=== PATIENT | female | born 1965 | race Caucasian/White ===

== ENCOUNTER 2017-03-14 22:38 | Inpatient (IN) | payer OTHER, MEDICARE, MEDICAID ==
[2017-03-14] MEDS ORDERED: MORPHINE SULFATE 8 MG/ML INJ ONE (22:43)
[2017-03-14] MEDS ORDERED: LORazepam 2 MG/ML VIAL ONE (22:49)
[2017-03-14 23:05] LABS: I-STAT POTASSIUM 4.2 MMOL/L (3.5-4.9); I-STAT SODIUM 138 MMOL/L (138-146)
[2017-03-14] MEDS ORDERED: IOHEXOL 350 MG/ML 10 ML VIAL (for RAD DIAG) IVCONTRAST ONE (23:06)
[2017-03-14 23:07] LABS: AUTOMATED NEUTROPHIL # 6.8 TH/MM3 (1.8-7.7); BASOPHIL % 0.3 % (0.0-2.0); EOSINOPHIL # 0.3 TH/MM3 (0-0.4); EOSINOPHIL % 1.8 % (0.0-4.0); HEMATOCRIT 37.9 % (35.0-46.0); LYMPH % 43.4 % (9.0-44.0); MEAN CORPUSCULAR HEMOGLOBIN 30.2 PG (27.0-34.0); MEAN CORPUSCULAR HGB CONC 34.7 % (32.0-36.0); MONO % 5.2 % (0.0-8.0); NEUT % 49.3 % (16.0-70.0); PLATELET COUNT 405 TH/MM3 (150-450); RED BLOOD COUNT 4.36 MIL/MM3 (4.00-5.30); RED CELL DISTRIBUTION WIDTH 14.3 % (11.6-17.2); WHITE BLOOD COUNT 13.7 TH/MM3 (4.0-11.0)
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
[2017-03-14 23:10] LABS: HEMO FLAGS AUTO DIFF
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
[2017-03-14 23:18] LABS: APTT (PATIENT) 25.2 SEC (24.3-30.1); INTERNATIONAL NORMALIZED RATIO 0.9 RATIO; PROTHROMBIN TIME - PATIENT 10.4 SEC (9.8-11.6)
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
[2017-03-14 23:24] LABS: BETA HCG QUANT 5 MIU/ML (0-5)
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
[2017-03-14 23:28] LABS: ALCOHOL LESS THAN 3 MG/DL (0-5)
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
[2017-03-14] MEDS ORDERED: HYDROmorphone HCL PF 1 MG/ML VIAL IV PUSH PRN (23:45)
[2017-03-14] MEDS ORDERED: MAGNESIUM HYDROXIDE SUSP 30 ML CUP PO PRN (23:45)
[2017-03-14] MEDS ORDERED: ONDANSETRON HCL 4 MG/2 ML VIAL IV PUSH PRN (23:45)
[2017-03-14] MEDS ORDERED: MISCELLANEOUS NURSING INFORMATION XX SCH (23:45)
[2017-03-14] MEDS ORDERED: LACTULOSE SYRUP 20 GM/30 ML CUP PO PRN (23:45)
[2017-03-14] MEDS ORDERED: PILL SPLITTER OTHER PRN (23:45)
[2017-03-14] MEDS ORDERED: CHLORHEXIDINE GLUCONATE 2 % 1 PACK (2 CLOTHS) TOP PRN (23:45)
[2017-03-14] MEDS ORDERED: HYDROmorphone HCL PF 0.5 MG/0.5 ML SYRINGE IV PUSH PRN (23:45)
[2017-03-14] MEDS ORDERED: SENNOSIDES 8.6 MG TAB PO PRN (23:45)
[2017-03-14] MEDS ORDERED: BISACODYL 10 MG SUPP RECTAL PRN (23:45)
[2017-03-14] MEDS: CYCLOBENZAPRINE HCL 10 MG TAB PO SCH (23:45)
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
[2017-03-14 23:55] LABS: METAMYELOCYTES 1 % (0-1); MYELOCYTES 1 % (0-0); NEUTROPHIL # MANUAL DIFF 7.7 TH/MM3 (1.8-7.7); POLYS (SEG NEUTROPHILS) 54 % (16-70); WBC DIFF SAMPLE 100
[2017-03-14 23:56] LABS: PLATELET ESTIMATE SMEAR NORMAL (NORMAL); PLATELET MORPHOLOGY NORMAL (NORMAL); SCAN/DIFF FINAL DIFF MANUAL; TEARDROP RBCS 1+ (NORMAL)
[2017-03-15] VITALS (11 sets, daily range): BP systolic 105–113; BP diastolic 61–64; PULSE 72–90; RESP 16–24; TEMP 97.9–98.2; O2SAT 97–100
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
[2017-03-15] MEDS: SODIUM CHLOR 0.9% 1000 ML INJ 1,000 ML IV SCH ×2 (00:32→08:54)
--- NOTE | 2017-03-15 01:04 | PD.OP ---
Operative Report Right forehead open wound 8cm Nose open wound 3cm Postoperative Diagnosis: Right forehead open wound 8cm,Nose open wound 3cm Procedure: Simple closure Surgeon: Kerry Lopez Willower(s): none Operation and Findings: 52 y.o patient with above mentioned wounds-proceeded with closure. Patient's right forehead was sterilely prepped and draped .1% Lidocain was used as local anesthesia.5-0 vicryl was used to approximate the forehead wound.Both wounds were closed with 4-0 prolene and nylon. Kerry Lopez MD Mar 15, 2017 01:04
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
[2017-03-15] MEDS: CHLORHEXIDINE GLUCONATE 2 % 1 PACK (2 CLOTHS) TOP SCH (04:00)
[2017-03-15 05:22] LABS: AUTOMATED NEUTROPHIL # 11.4 TH/MM3 (1.8-7.7); BASOPHIL % 0.2 % (0.0-2.0); EOSINOPHIL % 0.3 % (0.0-4.0); HEMATOCRIT 35.4 % (35.0-46.0); HEMO FLAGS DIFF FINAL; LYMPH % 11.2 % (9.0-44.0); LYMPHOCYTE # 1.6 TH/MM3 (1.0-4.8); MEAN CELL VOLUME 87.2 FL (80.0-100.0); MEAN CORPUSCULAR HEMOGLOBIN 29.8 PG (27.0-34.0); MEAN CORPUSCULAR HGB CONC 34.1 % (32.0-36.0); MONO % 7.5 % (0.0-8.0); NEUT % 80.8 % (16.0-70.0); PLATELET COUNT 231 TH/MM3 (150-450); RED BLOOD COUNT 4.07 MIL/MM3 (4.00-5.30); RED CELL DISTRIBUTION WIDTH 14.5 % (11.6-17.2)
[2017-03-15 05:24] LABS: WHITE BLOOD COUNT 14.1 TH/MM3 (4.0-11.0)
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
[2017-03-15 05:37] LABS: BICARBONATE 21.1 MEQ/L (21.0-32.0); POTASSIUM 4.2 MEQ/L (3.5-5.1)
[2017-03-15] MEDS: CYCLOBENZAPRINE HCL 10 MG TAB PO SCH ×3 (06:00→21:13)
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
[2017-03-15] MEDS ORDERED: DOCUSATE SODIUM 50 MG/SENNA 8.6 MG TAB PO SCH (09:00)
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
[2017-03-15] MEDS: LIDOCAINE HCL 5% PATCH T-DERMAL SCH (09:24)
[2017-03-15] MEDS ORDERED: CYMB60CA PO (10:55)
[2017-03-15] MEDS ORDERED: CELE10TA PO (10:55)
[2017-03-15] MEDS ORDERED: GABA800T PO (10:55)
[2017-03-15] MEDS ORDERED: MORPHINE SULFATE 4 MG/ML INJ IV ONE (11:00)
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
[2017-03-15] MEDS ORDERED: PHENYLEPH/NS 1000 MCG/10 ML SYR IV ONE (12:00)
[2017-03-15] MEDS ORDERED: DEXAMETHASONE SOD PHOS 4 MG/ML VIAL IV ONE (12:00)
[2017-03-15] MEDS ORDERED: LIDOCAINE HCL 1% PF 5 ML AMPULE OTHER ONE (12:00)
[2017-03-15] MEDS ORDERED: PROPOFOL 200 MG/20 ML AMP IV ONE (12:00)
[2017-03-15] MEDS ORDERED: ONDANSETRON HCL 4 MG/2 ML VIAL IV PUSH ONE (12:00)
[2017-03-15] MEDS ORDERED: FAMOTIDINE 20 MG/2 ML VIAL ONE (12:04)
[2017-03-15] MEDS ORDERED: MIDAZOLAM HCL 2 MG/2 ML VIAL ONE (12:04)
[2017-03-15] MEDS ORDERED: FAMOTIDINE 20 MG/2 ML VIAL IV ONE (12:15)
[2017-03-15] MEDS ORDERED: MORPHINE SULFATE 2 MG/ML INJ IV PRN (12:15)
[2017-03-15] MEDS ORDERED: GENTAMICIN SULFATE 80 MG/2 ML VIAL ONE (13:01)
[2017-03-15] MEDS ORDERED: VANCOMYCIN HCL 1000 MG VIAL ONE (13:02)
[2017-03-15] MEDS ORDERED: ceFAZolin 2 GM PREMIX 50 ML ONE (13:02)
[2017-03-15] MEDS ORDERED: NALOXONE HCL 0.4 MG/ML AMP IV PUSH PRN ×2 (14:15→15:00)
[2017-03-15] MEDS ORDERED: DEXT 5%-NACL 0.45% 1000 ML INJ 1,000 ML IV SCH (14:56)
[2017-03-15] MEDS ORDERED: Post-op Orders (for Pharmacy) MISC XX ONE (15:00)
[2017-03-15] MEDS ORDERED: MISCELLANEOUS PHARMACY INFORMATION XX ONE (15:00)
[2017-03-15] MEDS ORDERED: ONDANSETRON HCL 4 MG/2 ML VIAL IVP PRN (15:00)
[2017-03-15] MEDS ORDERED: SODIUM CHLORIDE 0.9% FLUSH 5 ML FLUSH IVF PRN (15:00)
[2017-03-15] MEDS ORDERED: diphenhydrAMINE HCL 25 MG CAP PO PRN (15:00)
[2017-03-15] MEDS ORDERED: MORPHINE SULFATE 4 MG/ML INJ IV PUSH PRN (15:00)
[2017-03-15] MEDS ORDERED: MAGNESIUM HYDROXIDE SUSP 30 ML CUP PO PRN (15:00)
[2017-03-15] MEDS ORDERED: ACETAMINOPHEN/HYDROcodone 325 MG/5 MG TAB PO PRN ×2 (15:00)
[2017-03-15] MEDS ORDERED: MISCELLANEOUS NURSING INFORMATION XX PRN (15:00)
--- NOTE | 2017-03-15 15:03 | PD.OP ---
cc: Ki Lozano MD Operative Report Date of Surgery: Mar 15, 2017 Preoperative Diagnosis: Left tibia and fibula fracture. Postoperative Diagnosis: Same Procedure: Left tibia fracture treatment with intramedullary nail Anesthesia: Gen. Surgeon: Ki Lozano Kidney Puller(s): JOSE Blanton The surgical procedure was assisted by my Advanced Registered Nurse Practitioner. My LOAD PLANNER presence was necessary throughout this case for the manipulation and positioning of the surgical extremity. My LOAD PLANNER was assisting me throughout the duration of this procedure. The skill set of an Advance Registered Nurse Practitioner was medically necessary to complete this procedure. During the surgical case, the isotope technician was working at the back table and the Advance Registered Nurse Practitioner was directly assisting me. Operation and Findings: Note that we did take an x-ray of the RIGHT knee prior to surgery which showed a nondisplaced fibular head fracture. Implants: Synthes tibal nail, size: 9 x 315, statically locked Estimated blood loss: 150 cc The patient received intravenous vancomycin and Ancef. After the appropriate anesthesia was administered, the patient was prepped and draped in the supine position in the usual sterile fashion. Skin assessment showed no open wounds. There was mild swelling noted to the leg. We made incision proximal to the patella. We carefully dissected down to the quadriceps tendon. An in-line longitudinal split to the quadriceps tendon was completed. The capsule of the knee was entered. We placed the smooth trocar within the knee joint down to the proximal tibia, protecting the patella and trochlea during the case. We then reduced the tibia fracture manually and under fluoroscopic imaging. A ball-tipped guidewire was placed into the tibial shaft, passing the fracture site. This was placed down to the distal physeal line of the tibia. We then sequentially reamed the tibia to 1 mm larger than the implanted tibial nail. We obtained good cortical chatter. We measured the appropriate length for the tibial nail. We then passed the tibial nail into the medullary canal of the tibia. We used the perfect kasaan technique distally to visualize the distal tibial screw holes. We placed 2 screws distally. We then back slapped the bone to obtain good cortical apposition. The nail was secured proximally with 3 screw(s), using the associated jig as a guide . We thoroughly irrigated the incisions including a lavage of the arthrotomy site proximally. The quadriceps split was closed with a #1 Vicryl. The remaining incisions were closed with #2-0 Vicryl, followed by dhruv. Left lower extremity: The postoperative plan is for toe-touch weightbearing on the left lower extremity. Chemical DVT prophylaxis will be performed with Lovenox for 3 weeks. Also for the right lower extremity we will proceed with weight-bear as tolerated and non-operative management for the fibular head fracture. Ki Lozano MD Mar 15, 2017 15:03
[2017-03-15] MEDS ORDERED: ENDO10TA8 PO (15:07)
[2017-03-15] MEDS ORDERED: ENOX40IN SQ (15:07)
[2017-03-15] MEDS ORDERED: oxyCODONE/ACETAMINOPHEN 10 MG/325 MG TAB PO PRN ×2 (15:15)
[2017-03-15] MEDS ORDERED: *RESP: ALBUTEROL 2.5 MG/3 ML NEB (PRN) PERIprocedural Use ONLY NEB ONE (15:19)
[2017-03-15] MEDS ORDERED: DO NOT ADM ANY ANTICOAGULANT DRUGS PRN (15:21)
[2017-03-15] MEDS: MORPHINE SULFATE 30 MG/30 ML PCA IV SCH (15:49)
[2017-03-15] MEDS ORDERED: CITALOPRAM HYDROBROMIDE 20 MG TAB PO ONE (17:45)
[2017-03-15] MEDS: GABAPENTIN 400 MG CAP PO SCH (18:27)
[2017-03-15] MEDS: DULoxetine HCl DR 60 MG CAP PO SCH (19:18)
[2017-03-15] MEDS: SODIUM CHLORIDE 0.9% FLUSH 5 ML FLUSH IVF SCH (20:22)
[2017-03-15] MEDS: DOCUSATE SODIUM 50 MG/SENNA 8.6 MG TAB PO SCH ×2 (20:22→21:00)
--- NOTE | 2017-03-15 20:32 | RADRPT ---
EXAM DATE/TIME: 03/15/2017 15:33 [facility] COMPARISON: TIBIA/FIBULA LEFT (AP/LAT), March 14, 2017, 22:39. INDICATIONS : ORIF of left tibia. MEDICAL HISTORY : None. SURGICAL HISTORY : None. ENCOUNTER: Initial ACUITY: 1 day PAIN SCORE: Non-responsive. LOCATION: Left lower leg. FINDINGS: 6 spot intraoperative fluoroscopic views of the left tibia and fibula demonstrate antegrade intramedu llary katherine xation hardware placement across the proximal tibial diaphyseal fracture with 3 proximal in terlocking screws and 2 distal interlocking screws. CONCLUSION: Operative fixation left proximal tibial fracture. Derrick Hernandez MD on March 15, 2017 at 20:29 Board Certified Radiologist. This report was verified electronically.
[2017-03-15] MEDS: REMOVE OLD PATCH T-DERMAL SCH (21:00)
[2017-03-15] MEDS: FAMOTIDINE 20 MG TAB PO SCH (21:13)
[2017-03-15] MEDS: PCA - TOTAL MG MORPHINE DELIVERED PER SHIFT SCH (22:00)
[2017-03-16] VITALS (15 sets, daily range): BP systolic 95–115; BP diastolic 57–66; PULSE 74–100; RESP 16–27; TEMP 98.2–98.9; O2SAT 92–98
[2017-03-16] MEDS: CHLORHEXIDINE GLUCONATE 2 % 1 PACK (2 CLOTHS) TOP SCH (03:27)
--- NOTE | 2017-03-16 04:22 | RADRPT ---
EXAM DATE/TIME: 03/16/2017 03:03 [facility] COMPARISON: CHEST SINGLE AP, March 15, 2017, 5:11. INDICATIONS : Rib Fractures post Trauma MEDICAL HISTORY : None. SURGICAL HISTORY : None. ENCOUNTER: Subsequent ACUITY: 3 days PAIN SCORE: Non-responsive. LOCATION: Bilateral chest FINDINGS: The cardiac silhouette is normal in transverse diameter. There is prominence of the central pulmonary vasculature with indistinct vascular margins compatible with vascular congestion but no evidence of overt failure. There is subsegmental atelectasis in the left base. CONCLUSION: 1. Improving left basilar atelectasis 2. There is no evidence of pneumothorax. Bret Bailey MD on March 16, 2017 at 4:20 Board Certified Radiologist. This report was verified electronically.
[2017-03-16] MEDS: CYCLOBENZAPRINE HCL 10 MG TAB PO SCH ×3 (05:09→22:04)
[2017-03-16] MEDS: PCA - TOTAL MG MORPHINE DELIVERED PER SHIFT SCH ×3 (06:00→22:00)
[2017-03-16 06:07] LABS: BICARBONATE 22.6 MEQ/L (21.0-32.0); POTASSIUM 4.4 MEQ/L (3.5-5.1)
[2017-03-16 06:33] LABS: AUTOMATED NEUTROPHIL # 7.4 TH/MM3 (1.8-7.7); BASOPHIL % 0.1 % (0.0-2.0); EOSINOPHIL % 0.2 % (0.0-4.0); HEMATOCRIT 31.9 % (35.0-46.0); HEMO FLAGS DIFF FINAL; LYMPH % 15.4 % (9.0-44.0); LYMPHOCYTE # 1.5 TH/MM3 (1.0-4.8); MEAN CELL VOLUME 89.5 FL (80.0-100.0); MEAN CORPUSCULAR HEMOGLOBIN 30.4 PG (27.0-34.0); MONO % 7.7 % (0.0-8.0); NEUT % 76.6 % (16.0-70.0); PLATELET COUNT 219 TH/MM3 (150-450); RED BLOOD COUNT 3.56 MIL/MM3 (4.00-5.30); RED CELL DISTRIBUTION WIDTH 14.4 % (11.6-17.2); WHITE BLOOD COUNT 9.6 TH/MM3 (4.0-11.0)
[2017-03-16] MEDS: MORPHINE SULFATE 30 MG/30 ML PCA IV SCH ×2 (06:35→17:16)
[2017-03-16] MEDS: LACTULOSE SYRUP 20 GM/30 ML CUP PO SCH ×2 (07:30→09:00)
[2017-03-16] MEDS: MAGNESIUM HYDROXIDE SUSP 30 ML CUP PO SCH ×2 (09:00→20:38)
[2017-03-16] MEDS: MULTIVITAMINS/MINERALS THERAPEUTIC TAB PO SCH (09:00)
[2017-03-16] MEDS: DOCUSATE SODIUM 50 MG/SENNA 8.6 MG TAB PO SCH ×2 (09:00→20:38)
[2017-03-16] MEDS: LIDOCAINE HCL 5% PATCH T-DERMAL SCH (09:00)
[2017-03-16] MEDS: SODIUM CHLORIDE 0.9% FLUSH 5 ML FLUSH IVF SCH ×2 (09:00→20:38)
[2017-03-16] MEDS: FAMOTIDINE 20 MG TAB PO SCH ×2 (09:40→20:38)
[2017-03-16] MEDS: GABAPENTIN 400 MG CAP PO SCH ×3 (09:40→17:22)
[2017-03-16] MEDS: DULoxetine HCl DR 60 MG CAP PO SCH (09:40)
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
--- NOTE | 2017-03-16 13:44 | PD.ORT.PN ---
Subjective Post Op Day #: 1 Subjective Remarks Patient resting comfortably in bed with mild pain to the bilateral lower legs. Patient reports increased AROM of the LLE. Patient denies CP, SOB, fevers, or chills. Objective Vitals Vital Signs Date Time Temp Pulse Resp B/P (MAP) Pulse Ox O2 Delivery O2 Flow Rate FiO2 03/16/17 12:00 85 03/16/17 12:00 98.9 85 27 100/66 (77) 96 03/16/17 10:00 84 03/16/17 08:00 86 03/16/17 08:00 98.9 86 22 96/62 (73) 96 03/16/17 07:15 95 Nasal Cannula 2.00 03/16/17 07:00 95 Nasal Cannula 2.00 03/16/17 06:40 14 03/16/17 06:35 16 03/16/17 06:00 84 03/16/17 06:00 14 03/16/17 04:00 98.6 80 18 113/58 (76) 96 03/16/17 04:00 80 03/16/17 02:07 98 Nasal Cannula 2.00 03/16/17 02:00 78 03/16/17 00:00 98.2 74 16 95/57 (70) 98 03/16/17 00:00 74 03/15/17 22:00 72 03/15/17 22:00 14 03/15/17 20:00 75 03/15/17 20:00 98.2 75 16 108/64 (79) 97 03/15/17 19:00 98 Nasal Cannula 2.00 03/15/17 18:48 98 Nasal Cannula 3.00 03/15/17 18:00 72 03/15/17 16:13 97.8 78 15 116/71 (86) 92 Nasal Cannula 4 03/15/17 16:00 77 19 117/68 (84) 92 Nasal Cannula 4 03/15/17 15:49 18 03/15/17 15:45 80 19 117/69 (85) 92 Nasal Cannula 4 03/15/17 15:30 80 21 118/63 (81) 96 Nasal Cannula 4 03/15/17 15:19 97.5 82 20 122/63 (82) 83 Simple Mask 6 I/O 03/15/17 03/15/17 03/15/17 03/16/176/17 11/6/17 07:00 15:00 23:00 07:00 15:00 23:00 Intake Total 720 ml 1400 ml 1070 ml 502 ml Output Total 550 ml 300 ml 850 ml 1100 ml Balance 170 ml 1100 ml 220 ml -598 ml Intake Oral 0 ml 180 ml 240 ml IV Total 720 ml 1400 ml 890 ml 262 ml Output Urine Total 550 ml 150 ml 850 ml 1100 ml Estimated Blood Loss 150 ml # Bowel Movements 0 0 Result Diagram: 03/16/17 0500 03/16/17 0500 Imaging Last 24 hours Impressions Chest X-Ray 03/16/17 0600 Signed Impressions: Service Date/Time: Thursday, March 16, 2017 03:03 - CONCLUSION: 1. Improving left basilar atelectasis 2. There is no evidence of pneumothorax. Bret Bailey MD Procedures Left tibia fracture treatment with intramedullary nail Right fibula head fracture Objective Remarks Left lower extremity dressing is C/D/I. EHL/TA/G intact. 2+ pedal pulse. + SILT. Calf is soft and nontender. Right lower extremity EHL/TA/G intact. 2+ pedal pulse. Skin intact. Calf is soft and nontender. + SILT. Assessment & Plan Ortho Post Op Day #: 1 Problem List: Assessment and Plan POD #1: Left tibia fracture treatment with intramedullary nail Right fibula head fracture 1. TTWB LLE, WBAT RLE 2. Lovenox for DVT prophylaxis x 3 weeks 3. Ice to the bilateral Lower legs PRN 4. Plan is for discharge to SNF vs Rehab once medically cleared. Stable per ortho. 5. F/U in the office in 1-[address] Lozano or JOSE Diaz Daniel Scott ARNP Mar 16, 2017 13:44
[2017-03-16] MEDS ORDERED: COMMODE 3-IN-11 MIS (14:21)
[2017-03-16] MEDS ORDERED: WALKER WHEELS/F1 MIS (14:21)
[2017-03-16] MEDS: ENOXAPARIN SODIUM 40 MG/0.4 ML SYRINGE SQ SCH (14:35)
[2017-03-16] MEDS: REMOVE OLD PATCH T-DERMAL SCH (21:00)
[2017-03-17] VITALS (13 sets, daily range): BP systolic 105–142; BP diastolic 55–87; PULSE 82–99; RESP 18–22; TEMP 96.8–99; O2SAT 92–97
[2017-03-17] MEDS: CHLORHEXIDINE GLUCONATE 2 % 1 PACK (2 CLOTHS) TOP SCH ×2 (03:21→22:44)
[2017-03-17 05:10] LABS: AUTOMATED NEUTROPHIL # 7.2 TH/MM3 (1.8-7.7); BASOPHIL % 0.3 % (0.0-2.0); EOSINOPHIL # 0.1 TH/MM3 (0-0.4); EOSINOPHIL % 1.2 % (0.0-4.0); HEMATOCRIT 30.5 % (35.0-46.0); HEMO FLAGS DIFF FINAL; LYMPH % 21.2 % (9.0-44.0); LYMPHOCYTE # 2.2 TH/MM3 (1.0-4.8); MEAN CELL VOLUME 88.7 FL (80.0-100.0); MEAN CORPUSCULAR HEMOGLOBIN 29.9 PG (27.0-34.0); MEAN CORPUSCULAR HGB CONC 33.8 % (32.0-36.0); MONO % 8.7 % (0.0-8.0); NEUT % 68.6 % (16.0-70.0); PLATELET COUNT 232 TH/MM3 (150-450); RED BLOOD COUNT 3.44 MIL/MM3 (4.00-5.30); RED CELL DISTRIBUTION WIDTH 13.8 % (11.6-17.2); WHITE BLOOD COUNT 10.5 TH/MM3 (4.0-11.0)
[2017-03-17] MEDS ORDERED: SODIUM CHLOR 0.9% 1000 ML INJ 1,000 ML IV ONE (05:15)
[2017-03-17] MEDS: CYCLOBENZAPRINE HCL 10 MG TAB PO SCH ×3 (05:22→20:36)
[2017-03-17] MEDS: PCA - TOTAL MG MORPHINE DELIVERED PER SHIFT SCH ×3 (05:29→22:00)
[2017-03-17 05:40] LABS: ALT (GPT) 34 U/L (10-53); ANION GAP 6 MEQ/L (5-15); AST (GOT) 46 U/L (15-37); BICARBONATE 27.9 MEQ/L (21.0-32.0); BLOOD UREA NITROGEN 5 MG/DL (7-18); CHLORIDE 103 MEQ/L (98-107); GLOMERULAR FILTRATION RATE 88 ML/MIN (>89); POTASSIUM 3.8 MEQ/L (3.5-5.1); SODIUM (NA) 137 MEQ/L (136-145)
[2017-03-17 05:42] LABS: ALKALINE PHOSPHATASE 98 U/L (45-117); TOTAL BILIRUBIN ADULT 0.4 MG/DL (0.2-1.0)
--- NOTE | 2017-03-17 05:53 | RADRPT ---
EXAM DATE/TIME: 03/17/2017 05:03 This report includes an Addendum and supersedes previous reports for this exam. [facility] COMPARISON: CHEST SINGLE AP, March 16, 2017, 3:03. INDICATIONS : Short of breath. MEDICAL HISTORY : None. SURGICAL HISTORY : None. ENCOUNTER: Subsequent ACUITY: 3 days PAIN SCORE: Non-responsive. LOCATION: Bilateral chest FINDINGS: The cardiac silhouette is enlarged in transverse diameter. There is left lower lobe atelectasis versu s pneumonia. There has been no significant change when compared to the prior exam. No pleural effusio ns are identified. CONCLUSION: 1. Left lower lobe atelectasis versus pneumonia. There has been no significant change when compared t o the prior exam. Bret Bailey MD on March 17, 2017 at 5:51 Board Certified Radiologist. This report was verified electronically. ADDENDUM: COMPARISON: CHEST SINGLE AP, March 15, 2017, 5:11. At the request of Dr. Bass, this examination was reviewed. There is a small right pneumothorax identified which was not described in the above original report. No pneumothorax is visualized on the 2 most prior chest x-rays but a small right pneumothorax was vis ualized on the original chest CT. There are no findings to indicate tension. The passes good above, t here is airspace opacity at the left lung base. Right chest wall soft tissue air is stable and multip le right rib fractures remain visualized. IMPRESSION: Upon further review, there is a small right pneumothorax without signs of tension. Altho ugh one was present on the original trauma chest CT, it has enlarged given that it was not visible on the interval chest x-rays. Zafar Cordova MD on March 17, 2017 at 9:15 Board Certified Radiologist. This report was verified electronically.
[2017-03-17] MEDS: MORPHINE SULFATE 30 MG/30 ML PCA IV SCH ×2 (07:01→16:43)
[2017-03-17] MEDS: LACTULOSE SYRUP 20 GM/30 ML CUP PO SCH (07:56)
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
[2017-03-17] MEDS: MAGNESIUM HYDROXIDE SUSP 30 ML CUP PO SCH ×2 (08:11→20:36)
[2017-03-17] MEDS: DOCUSATE SODIUM 50 MG/SENNA 8.6 MG TAB PO SCH ×2 (08:11→20:36)
[2017-03-17] MEDS: DULoxetine HCl DR 60 MG CAP PO SCH (08:11)
[2017-03-17] MEDS: GABAPENTIN 400 MG CAP PO SCH ×3 (08:11→17:26)
[2017-03-17] MEDS: LIDOCAINE HCL 5% PATCH T-DERMAL SCH (08:11)
[2017-03-17] MEDS: FAMOTIDINE 20 MG TAB PO SCH ×2 (08:11→20:36)
[2017-03-17] MEDS: MULTIVITAMINS/MINERALS THERAPEUTIC TAB PO SCH (08:12)
[2017-03-17] MEDS: SODIUM CHLORIDE 0.9% FLUSH 5 ML FLUSH IVF SCH ×2 (08:12→20:37)
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
[2017-03-17] MEDS: OLANZapine 10 MG TAB PO SCH (11:28)
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
[2017-03-17] MEDS: ENOXAPARIN SODIUM 40 MG/0.4 ML SYRINGE SQ SCH (14:30)
--- NOTE | 2017-03-17 17:04 | PD.ORT.PN ---
Subjective Post Op Day #: 2 Subjective Remarks Patient resting comfortably in bed with mild-moderate pain to the bilateral lower legs. Patient denies CP, SOB, fevers, or chills. Patient states she is anxious today and has a history of this. Patient will talk with medical regarding medications to help with her anxiety. Objective Vitals Vital Signs Date Time Temp Pulse Resp B/P (MAP) Pulse Ox O2 Delivery O2 Flow Rate FiO2 03/17/17 16:43 22 03/17/17 16:38 96 Nasal Cannula 4.00 03/17/17 16:00 98.5 92 22 117/79 (92) 97 03/17/17 16:00 92 03/17/17 14:00 22 03/17/17 14:00 99 03/17/17 12:00 90 03/17/17 12:00 98.6 90 20 142/87 (105) 96 03/17/17 10:00 92 03/17/17 08:50 94 Nasal Cannula 5.00 03/17/17 08:00 98.4 87 22 122/80 (94) 95 03/17/17 08:00 87 03/17/17 07:01 20 03/17/17 07:00 96 Nasal Cannula 2.00 03/17/17 06:00 90 03/17/17 05:29 20 03/17/17 04:00 98.7 92 18 113/55 (74) 92 03/17/17 04:00 92 03/17/17 02:00 98 03/17/17 00:00 99.0 92 20 130/69 (89) 92 03/17/17 00:00 96 03/16/17 22:00 92 03/16/17 22:00 16 03/16/17 20:34 94 Nasal Cannula 4.00 03/16/17 20:00 92 03/16/17 20:00 98.7 92 20 103/58 (73) 92 03/16/17 19:00 92 Nasal Cannula 4.00 03/16/17 18:00 85 03/16/17 17:22 26 03/16/17 17:16 25 I/O 03/16/17 03/16/17 03/16/17 03/17/17 03/17/17 03/17/17 07:00 15:00 23:00 07:00 15:00 23:00 Intake Total 502 ml 684 ml 1640 ml 680 ml Output Total 1100 ml 250 ml 250 ml Balance -598 ml 434 ml 1390 ml 680 ml Intake Oral 240 ml 500 ml 480 ml IV Total 262 ml 184 ml 1160 ml 680 ml Output Urine Total 1100 ml 250 ml 250 ml # Bowel Movements 0 0 0 Result Diagram: 03/17/1740103/17/17401 Imaging Last 24 hours Impressions Chest X-Ray 03/16/17 0600 Signed Impressions: Service Date/Time: Thursday, March 16, 2017 03:03 - CONCLUSION: 1. Improving left basilar atelectasis 2. There is no evidence of pneumothorax. Bret Bailey MD Procedures Left tibia fracture treatment with intramedullary nail Right fibula head fracture Objective Remarks Left lower extremity dressing is C/D/I. EHL/TA/G intact. 2+ pedal pulse. + SILT. Calf is soft and nontender. Right lower extremity EHL/TA/G intact. 2+ pedal pulse. Skin intact. Calf is soft and nontender. + SILT. Assessment & Plan Ortho Post Op Day #: 2 Problem List: Assessment and Plan POD #2: Left tibia fracture treatment with intramedullary nail Right fibula head fracture 1. TTWB LLE, WBAT RLE 2. Lovenox for DVT prophylaxis x 3 weeks 3. Ice to the bilateral Lower legs PRN 4. Plan is for discharge to SNF vs Rehab once medically cleared. Stable per ortho. 5. Patient to be discharged to ortho floor today. 6. F/U in the office in 1-[address] Lozano or JOSE Diaz Daniel Scott ARNP Mar 17, 2017 17:04
[2017-03-17] MEDS: REMOVE OLD PATCH T-DERMAL SCH (20:38)
[2017-03-18] VITALS (8 sets, daily range): BP systolic 106–116; BP diastolic 56–74; PULSE 83–114; RESP 14–21; TEMP 96.7–97.1; O2SAT 93–98
[2017-03-18] MEDS: CYCLOBENZAPRINE HCL 10 MG TAB PO SCH ×3 (05:16→22:00)
[2017-03-18] MEDS: PCA - TOTAL MG MORPHINE DELIVERED PER SHIFT SCH (05:16)
--- NOTE | 2017-03-18 06:14 | RADRPT ---
EXAM DATE/TIME: 03/18/2017 05:27 [place] COMPARISON: CHEST SINGLE AP, March 17, 2017, 5:03. INDICATIONS : Shortness of breath. MEDICAL HISTORY : None. SURGICAL HISTORY : None. ENCOUNTER: Subsequent ACUITY: 4 - 6 days PAIN SCORE: Non-responsive. LOCATION: Bilateral chest FINDINGS: The cardiac silhouette is enlarged in transverse diameter. There is prominence of the central pulmona ry vasculature with indistinct vascular margins compatible with vascular congestion but no evidence o f overt failure. There is subsegmental atelectasis in the left base. CONCLUSION: 1. Cardiomegaly and findings of vascular congestion without overt failure. There has been no signific ant change when compared to the prior exam. Bret Bailey MD on March 18, 2017 at 6:13 Board Certified Radiologist. This report was verified electronically.
[2017-03-18 06:22] LABS: AUTOMATED NEUTROPHIL # 7.7 TH/MM3 (1.8-7.7); BASOPHIL % 0.2 % (0.0-2.0); EOSINOPHIL # 0.1 TH/MM3 (0-0.4); EOSINOPHIL % 1.3 % (0.0-4.0); HEMATOCRIT 29.7 % (35.0-46.0); HEMO FLAGS DIFF FINAL; LYMPH % 12.8 % (9.0-44.0); LYMPHOCYTE # 1.3 TH/MM3 (1.0-4.8); MEAN CELL VOLUME 87.1 FL (80.0-100.0); MEAN CORPUSCULAR HEMOGLOBIN 30.1 PG (27.0-34.0); MEAN CORPUSCULAR HGB CONC 34.6 % (32.0-36.0); MONO % 7.1 % (0.0-8.0); NEUT % 78.6 % (16.0-70.0); PLATELET COUNT 260 TH/MM3 (150-450); RED BLOOD COUNT 3.41 MIL/MM3 (4.00-5.30); RED CELL DISTRIBUTION WIDTH 13.8 % (11.6-17.2); WHITE BLOOD COUNT 9.8 TH/MM3 (4.0-11.0)
[2017-03-18 06:45] LABS: BICARBONATE 33.1 MEQ/L (21.0-32.0)
[2017-03-18] MEDS ORDERED: oxyCODONE/ACETAMINOPHEN 5 MG/325 MG TAB PO PRN (06:45)
[2017-03-18] MEDS ORDERED: MAGNESIUM CITRATE SOLN 300 ML BTL PO ONE (06:45)
[2017-03-18] MEDS: SODIUM CHLORIDE 0.9% FLUSH 5 ML FLUSH IVF SCH ×2 (09:00→20:49)
[2017-03-18] MEDS ORDERED: fentaNYL 50 MCG/HR PATCH T-DERMAL SCH (09:00)
[2017-03-18] MEDS: LACTULOSE SYRUP 20 GM/30 ML CUP PO SCH (09:00)
[2017-03-18] MEDS: MAGNESIUM HYDROXIDE SUSP 30 ML CUP PO SCH (09:00)
--- NOTE | 2017-03-18 09:36 | PD.ORT.PN ---
Subjective Subjective Remarks less pain in both legs Objective Vitals Vital Signs Date Time Temp Pulse Resp B/P (MAP) Pulse Ox O2 Delivery O2 Flow Rate FiO2 03/18/17 07:48 97.0 92 17 111/67 (82) 93 03/18/17 05:20 96.8 87 18 106/71 (83) 95 03/18/17 00:15 96.7 83 18 107/65 (79) 98 03/17/17 20:25 96.8 82 18 105/69 (81) 96 03/17/17 20:15 96 Nasal Cannula 3.00 03/17/17 16:43 22 03/17/17 16:38 96 Nasal Cannula 4.00 03/17/17 16:00 98.5 92 22 117/79 (92) 97 03/17/17 16:00 92 03/17/17 14:00 22 03/17/17 14:00 99 03/17/17 12:00 90 03/17/17 12:00 98.6 90 20 142/87 (105) 96 03/17/17 10:00 92 I/O 03/17/17 03/17/17 03/17/17 03/18/17 03/18/17 03/18/17 07:00 15:00 23:00 07:00 15:00 23:00 Intake Total 1640 ml 680 ml 240 ml 467 ml Output Total 250 ml 125 ml 100 ml Balance 1390 ml 680 ml 115 ml 367 ml Intake Oral 480 ml 240 ml 240 ml IV Total 1160 ml 680 ml 227 ml Output Urine Total 250 ml 125 ml 100 ml Bladder Scan Volume Amount 115 ml # Bowel Movements 0 0 0 Result Diagram: 03/18/178 03/18/17 0458 Imaging Last 24 hours Impressions Chest X-Ray 03/16/17 0600 Signed Impressions: Service Date/Time: Thursday, March 16, 2017 03:03 - CONCLUSION: 1. Improving left basilar atelectasis 2. There is no evidence of pneumothorax. Bret Bailey MD Procedures Left tibia fracture treatment with intramedullary nail Right fibula head fracture Objective Remarks Left lower extremity dressing is C/D/I. EHL/TA/G intact. 2+ pedal pulse. + SILT. Calf is soft and nontender. moves toes Right lower extremity EHL/TA/G intact. 2+ pedal pulse. Skin intact. Calf is soft and nontender. + SILT. R knee with mild echymosis medial knee. No instability to v/v stress, - kavin. R ankle: no tenderness to ankle or swelling Assessment & Plan Assessment and Plan POD #3: Left tibia fracture treatment with intramedullary nail Right fibula head fracture 1. TTWB LLE, WBAT RLE 2. Lovenox for DVT prophylaxis x 3 weeks 3. Ice to the bilateral Lower legs PRN 4. Plan is for discharge to SNF vs Rehab once medically cleared. Stable per ortho. 5. cleared for d/c per ortho 6. F/U in the office in 1-[address] Lozano or JOSE Diaz Brian R. MD Mar 18, 2017 09:36
[2017-03-18] MEDS: OLANZapine 10 MG TAB PO SCH (09:51)
[2017-03-18] MEDS: GABAPENTIN 400 MG CAP PO SCH ×3 (09:52→18:00)
[2017-03-18] MEDS: FAMOTIDINE 20 MG TAB PO SCH ×2 (09:53→20:50)
[2017-03-18] MEDS: DOCUSATE SODIUM 50 MG/SENNA 8.6 MG TAB PO SCH ×2 (09:53→20:50)
[2017-03-18] MEDS: oxyCODONE/ACETAMINOPHEN 10 MG/325 MG TAB PO PRN ×2 (09:53→16:17)
[2017-03-18] MEDS: MULTIVITAMINS/MINERALS THERAPEUTIC TAB PO SCH (09:53)
[2017-03-18] MEDS: DULoxetine HCl DR 60 MG CAP PO SCH ×3 (09:53→20:50)
[2017-03-18] MEDS: LIDOCAINE HCL 5% PATCH T-DERMAL SCH (09:55)
[2017-03-18] MEDS ORDERED: GLUCAGON 1 MG/ML VIAL OTHER PRN (11:30)
[2017-03-18] MEDS ORDERED: DEXTROSE 50% IN WATER 50 ML VIAL(D50) IV PUSH PRN (11:30)
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
[2017-03-18] MEDS: INSULIN NovoLIN REGULAR SUPPLEMENTAL SCALE SQ SCH ×3 (12:00→20:50)
[2017-03-18] MEDS ORDERED: KETOROLAC TROMETHAMINE 30 MG/ML (IVP) VIAL IV PUSH SCH (12:00)
[2017-03-18] MEDS ORDERED: ACETAMINOPHEN 1000 MG/100 ML 100 ML IV PRN (13:00)
[2017-03-18] MEDS: CITALOPRAM HYDROBROMIDE 20 MG TAB PO SCH (13:04)
[2017-03-18] MEDS: ENOXAPARIN SODIUM 40 MG/0.4 ML SYRINGE SQ SCH (13:06)
[2017-03-18] MEDS: POLYETHYLENE GLYCOL 17 GM PKG PO SCH (16:06)
[2017-03-18] MEDS: RESP: ALBUTEROL 2.5 MG/IPRATROPIUM 0.5 MG NEB (SCH) NEB (19:05)
[2017-03-18] MEDS ORDERED: BISACODYL 10 MG SUPP RECTAL ONE (20:00)
[2017-03-18] MEDS: REMOVE OLD PATCH T-DERMAL SCH (21:00)
[2017-03-19] VITALS (11 sets, daily range): BP systolic 88–132; BP diastolic 54–69; PULSE 90–118; RESP 18–24; TEMP 98.2–100.9; O2SAT 90–100
[2017-03-19] MEDS: CHLORHEXIDINE GLUCONATE 2 % 1 PACK (2 CLOTHS) TOP SCH (00:25)
[2017-03-19] MEDS: CYCLOBENZAPRINE HCL 10 MG TAB PO SCH (05:36)
[2017-03-19] MEDS: RESP: ALBUTEROL 2.5 MG/IPRATROPIUM 0.5 MG NEB (SCH) NEB ×3 (07:35→20:33)
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
[2017-03-19] MEDS: INSULIN NovoLIN REGULAR SUPPLEMENTAL SCALE SQ SCH ×4 (08:00→20:39)
[2017-03-19] MEDS: SODIUM CHLORIDE 0.9% FLUSH 5 ML FLUSH IVF SCH ×2 (09:00→20:38)
[2017-03-19] MEDS: OLANZapine 10 MG TAB PO SCH (09:00)
[2017-03-19] MEDS: POLYETHYLENE GLYCOL 17 GM PKG PO SCH (09:00)
[2017-03-19] MEDS: DULoxetine HCl DR 60 MG CAP PO SCH ×2 (09:00→22:30)
[2017-03-19] MEDS: DOCUSATE SODIUM 50 MG/SENNA 8.6 MG TAB PO SCH ×2 (09:00→20:39)
[2017-03-19] MEDS: MULTIVITAMINS/MINERALS THERAPEUTIC TAB PO SCH (09:29)
[2017-03-19] MEDS: GABAPENTIN 400 MG CAP PO SCH ×3 (09:29→18:34)
[2017-03-19] MEDS: FAMOTIDINE 20 MG TAB PO SCH ×2 (09:30→20:39)
[2017-03-19] MEDS: CITALOPRAM HYDROBROMIDE 20 MG TAB PO SCH (09:30)
[2017-03-19] MEDS: LIDOCAINE HCL 5% PATCH T-DERMAL SCH (09:34)
[2017-03-19] MEDS ORDERED: CYCLOBENZAPRINE HCL 10 MG TAB PO PRN (10:45)
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
[2017-03-19 12:08] LABS: BLOOD GAS BASE EXCESS 6.6 mmol/L (-2-2); BLOOD GAS CARBOXYHEMOGLOBIN 2.2 % (0-4); BLOOD GAS HCO3 29 mmol/L (22-26); BLOOD GAS METHEMOGLOBIN 1.1 % (0-2); BLOOD GAS O2 HGB SATURATION 83 % (90-100); BLOOD GAS OXYGEN CONTENT 12.7 Vol % (12.0-20.0); BLOOD GAS PCO2 33 mmHg (38-42); BLOOD GAS PO2 48 mmHg (61-120); TEMP CORR TO 98.6
[2017-03-19 12:09] LABS: CRITICAL VALUE YES; DRAW SITE RT RADIAL; FIO2 21 %; NUMBER OF ARTERIAL PUNCTURES 1; OXYGEN DEVICE ROOM AIR; STAT YES; ULNAR PULSE PRESENT
[2017-03-19] MEDS ORDERED: IOHEXOL 350 MG/ML 10 ML VIAL (for RAD DIAG) IVCONTRAST ONE (13:05)
[2017-03-19] MEDS ORDERED: LIDOCAINE HCL 1% 50 ML VIAL ONE (13:31)
--- NOTE | 2017-03-19 13:42 | RADRPT ---
EXAM DATE/TIME: 03/19/2017 12:53 [facility] COMPARISON: CT THORAX W CONTRAST, March 14, 2017, 23:03. CHEST SINGLE AP, March 15, 2017, 5:11. CHEST SIN GLE AP, March 16, 2017, 3:03. CHEST SINGLE AP, March 17, 2017, 5:03. CHEST SINGLE AP, Novembe 2016, 5:27. INDICATIONS : Short of breath. IV CONTRAST: 50 cc Omnipaque 350 (iohexol) IV RADIATION DOSE: 10.50 CTDIvol (mGy) MEDICAL HISTORY : Diabetes mellitus type 2. SURGICAL HISTORY : Hysterectomy. ENCOUNTER: Initial ACUITY: 1 day PAIN SCALE: Non-responsive LOCATION: Bilateral chest TECHNIQUE: Volumetric scanning of the chest was performed using a pulmonary embolism protocol MIP images were re constructed. Using automated exposure control and adjustment of the mA and/or kV according to patien t size, radiation dose was kept as low as reasonably achievable to obtain optimal diagnostic quality images. DICOM format image data is available electronically for review and comparison. Follow-up recommendations for detected pulmonary nodules are based at a minimum on nodule size and pa tient risk factors according to Fleischner Society Guidelines. FINDINGS: PULMONARY ARTERIES: No filling defects are seen in the pulmonary arteries through the segmental level. LUNGS: Right pneumothorax is increased in size since the initial CT. There is moderate contusion or atelecta sis in the posterior right lung and patchy infiltrate or contusion present on the left side as well a s atelectasis in the posterior medial left base. PLEURAE: Small right hemopneumothorax which is increased from the initial CT. MEDIASTINUM: There is good visualization of the great vessels of the middle mediastinum. No evidence of mediastin al or hilar adenopathy/mass. MUSCULOSKELETAL: Multiple right rib fractures, thoracic spines spinous process fractures MISCELLANEOUS: The visualized upper abdominal organs demonstrate no acute abnormality. CONCLUSION: Right hemopneumothorax is increased since initial CT exam. Moderate right lung atelectasis and patchy lung contusions. Zafar Faustin MD on March 19, 2017 at 13:32 Board Certified Radiologist. This report was verified electronically.
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
[2017-03-19] MEDS ORDERED: QUEtiapine FUMARATE 100 MG TAB PO SCH (14:00)
[2017-03-19 14:26] LABS: AUTOMATED NEUTROPHIL # 3.6 TH/MM3 (1.8-7.7); BASOPHIL % 0.1 % (0.0-2.0); EOSINOPHIL # 0.1 TH/MM3 (0-0.4); EOSINOPHIL % 1.2 % (0.0-4.0); HEMO FLAGS DIFF FINAL; LYMPH % 28.6 % (9.0-44.0); LYMPHOCYTE # 1.9 TH/MM3 (1.0-4.8); MEAN CELL VOLUME 89.4 FL (80.0-100.0); MEAN CORPUSCULAR HGB CONC 33.6 % (32.0-36.0); MONO % 14.9 % (0.0-8.0); NEUT % 55.2 % (16.0-70.0); PLATELET COUNT 270 TH/MM3 (150-450); RED BLOOD COUNT 3.14 MIL/MM3 (4.00-5.30); RED CELL DISTRIBUTION WIDTH 13.8 % (11.6-17.2); WHITE BLOOD COUNT 6.5 TH/MM3 (4.0-11.0)
[2017-03-19 14:42] LABS: BICARBONATE 28.8 MEQ/L (21.0-32.0); MAGNESIUM 2.2 MG/DL (1.5-2.5); POTASSIUM 3.5 MEQ/L (3.5-5.1)
[2017-03-19] MEDS ORDERED: ACETAMINOPHEN 325 MG TAB PO PRN (15:00)
[2017-03-19] MEDS: ENOXAPARIN SODIUM 40 MG/0.4 ML SYRINGE SQ SCH (15:00)
--- NOTE | 2017-03-19 15:48 | RADRPT ---
EXAM DATE/TIME: 03/19/2017 14:03 [facility] COMPARISON: CHEST SINGLE AP, March 18, 2017, 5:27. INDICATIONS : Chest tube placement. MEDICAL HISTORY : Diabetes mellitus type II. SURGICAL HISTORY : Hysterectomy. ENCOUNTER: Initial ACUITY: 4 - 6 days PAIN SCORE: Non-responsive. LOCATION: Bilateral chest FINDINGS: A single view of the chest demonstrates hypoinflation of the lungs with persistent left basilar atele ctasis. There is some stable linear stranding in the right perihilar distribution which is probably a telectatic. Increasing right apical capping areas interval placement of a surgical thoracostomy tube in the right base with persistent blunting of the right costophrenic angle suggesting effusion/hemoth orax. Multiple right-sided rib fractures are seen in this location. Heart size is normal accounting f or the low lung volumes.. CONCLUSION: 1. Interval placement of a right-sided surgical thoracostomy tube which projects over the right lung base. 2. Slight increase in the right pleural effusion/hemothorax with increasing right apical capping. No pneumothorax. 3. Stable atelectatic changes above the left hemidiaphragm and right perihilar distribution. 4. Multiple right lateral rib fractures in the lower chest. Dominik Garrison MD on March 19, 2017 at 15:44 Board Certified Radiologist. This report was verified electronically.
[2017-03-19] MEDS: QUEtiapine FUMARATE 100 MG TAB PO SCH (20:38)
[2017-03-20] VITALS (11 sets, daily range): BP systolic 91–106; BP diastolic 53–68; PULSE 71–88; RESP 14–23; TEMP 97.5–98; O2SAT 92–100
[2017-03-20 04:42] LABS: AUTOMATED NEUTROPHIL # 3.2 TH/MM3 (1.8-7.7); BASOPHIL % 0.2 % (0.0-2.0); EOSINOPHIL # 0.2 TH/MM3 (0-0.4); EOSINOPHIL % 2.5 % (0.0-4.0); HEMATOCRIT 23.6 % (35.0-46.0); HEMO FLAGS DIFF FINAL; LYMPH % 30.2 % (9.0-44.0); LYMPHOCYTE # 1.9 TH/MM3 (1.0-4.8); MEAN CELL VOLUME 87.2 FL (80.0-100.0); MEAN CORPUSCULAR HEMOGLOBIN 30.8 PG (27.0-34.0); MEAN CORPUSCULAR HGB CONC 35.3 % (32.0-36.0); MONO % 15.1 % (0.0-8.0); PLATELET COUNT 210 TH/MM3 (150-450); RED BLOOD COUNT 2.71 MIL/MM3 (4.00-5.30); RED CELL DISTRIBUTION WIDTH 13.5 % (11.6-17.2); WHITE BLOOD COUNT 6.2 TH/MM3 (4.0-11.0)
--- NOTE | 2017-03-20 04:46 | RADRPT ---
EXAM DATE/TIME: 03/20/2017 04:07 [facility] COMPARISON: CHEST SINGLE AP, March 19, 2017, 14:03. INDICATIONS : Hemopneumothorax. MEDICAL HISTORY : Diabetes mellitus type II. SURGICAL HISTORY : Hysterectomy. ENCOUNTER: Subsequent ACUITY: 4 - 6 days PAIN SCORE: 5/10 LOCATION: Right chest FINDINGS: The cardiac silhouette is normal in transverse diameter. There is subsegmental atelectasis in the lef t base. A right chest tube is in place. There is no evidence of pneumothorax. Fluid remains over the right apex. Multiple right rib fractures are present. CONCLUSION: 1. There is no evidence of pneumothorax. 2. Small right effusion Bret Bailey MD on March 20, 2017 at 4:44 Board Certified Radiologist. This report was verified electronically.
[2017-03-20 05:26] LABS: BICARBONATE 28.2 MEQ/L (21.0-32.0); POTASSIUM 3.4 MEQ/L (3.5-5.1)
[2017-03-20 05:41] LABS: CALCIUM-PROTEIN CORRECTED 8.4 MG/DL (8.5-10.1)
[2017-03-20] MEDS ORDERED: SODIUM CHLOR 0.9% 1000 ML INJ 1,000 ML IV SCH (07:00)
--- NOTE | 2017-03-20 07:04 | MR ---
cc: MOHAN MEEK MD DATE 03/19/2017 PREOPERATIVE DIAGNOSIS Enlarging right hemopneumothorax hypoxia. POSTOPERATIVE DIAGNOSIS Enlarging right hemopneumothorax hypoxia. OPERATIVE PROCEDURE Right chest tube placement. SURGEON Mohan Meek MD ANESTHESIA 1% Xylocaine ESTIMATED BLOOD LOSS Minimal PROCEDURE The patient prepped and draped in the usual fashion. Area filtrated with 1% Xylocaine, needle inserted in the area of tube insertion, infiltrating with 1% Xylocaine. A small incision made, deepened down to the intercostal space with a hemostat, chest is entered. A 20-Korean chest tube is placed in the posterior sulcus sutured with 0-silk and connected to Pleur-Evac. The patient tolerated the procedure well. Chest x-ray obtained. Mohan CAMEJO/MARIO /2:09 PM /6:59 AM
[2017-03-20] MEDS: INSULIN NovoLIN REGULAR SUPPLEMENTAL SCALE SQ SCH ×4 (08:00→21:00)
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
[2017-03-20] MEDS: oxyCODONE/ACETAMINOPHEN 10 MG/325 MG TAB PO PRN ×3 (09:20→21:25)
[2017-03-20] MEDS: GABAPENTIN 400 MG CAP PO SCH ×3 (09:20→18:31)
[2017-03-20] MEDS: MULTIVITAMINS/MINERALS THERAPEUTIC TAB PO SCH (09:21)
[2017-03-20] MEDS: LIDOCAINE HCL 5% PATCH T-DERMAL SCH (09:22)
[2017-03-20] MEDS: QUEtiapine FUMARATE 100 MG TAB PO SCH ×2 (09:22→21:25)
[2017-03-20] MEDS: FAMOTIDINE 20 MG TAB PO SCH ×2 (09:22→21:25)
[2017-03-20] MEDS: POLYETHYLENE GLYCOL 17 GM PKG PO SCH (09:23)
[2017-03-20] MEDS: SODIUM CHLORIDE 0.9% FLUSH 5 ML FLUSH IVF SCH ×2 (09:23→21:00)
[2017-03-20] MEDS: DOCUSATE SODIUM 50 MG/SENNA 8.6 MG TAB PO SCH ×2 (09:24→21:25)
[2017-03-20] MEDS: RESP: ALBUTEROL 2.5 MG/IPRATROPIUM 0.5 MG NEB (SCH) NEB ×2 (09:31→20:49)
[2017-03-20] MEDS ORDERED: POTASSIUM CHLORIDE 10 MEQ CONTROLLED RELEASE TAB PO ONE (09:45)
[2017-03-20] MEDS ORDERED: HALOPERIDOL LACTATE 5 MG/ML AMP IV PRN (09:45)
[2017-03-20] MEDS: DULoxetine HCl DR 60 MG CAP PO SCH ×2 (10:45→21:25)
[2017-03-20] MEDS: ENOXAPARIN SODIUM 40 MG/0.4 ML SYRINGE SQ SCH (14:03)
[2017-03-20] MEDS ORDERED: SODIUM CHLOR 0.9% 1000 ML INJ 1,000 ML IV ONE (15:00)
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
[2017-03-20] MEDS ORDERED: PERI PO (20:12)
[2017-03-20] MEDS ORDERED: FAMO20TA2 PO (20:16)
[2017-03-20] MEDS ORDERED: SENN187 PO (20:16)
[2017-03-20] MEDS ORDERED: Dextrose 50% In Wat (Vial) Inj IV PUSH (20:16)
[2017-03-20] MEDS ORDERED: Glucagon Inj OTHER (20:16)
[2017-03-20] MEDS ORDERED: NOVORP2 SQ (20:16)
[2017-03-20] MEDS ORDERED: BISA10R RECTAL (20:16)
[2017-03-20] MEDS ORDERED: QUET1TAB8 PO (20:16)
[2017-03-20] MEDS ORDERED: POLY17S PO (20:16)
[2017-03-21] VITALS (9 sets, daily range): BP systolic 100–123; BP diastolic 57–70; PULSE 81–96; RESP 16–18; TEMP 96.5–98; O2SAT 92–97
[2017-03-21 04:29] LABS: BICARBONATE 25.5 MEQ/L (21.0-32.0); POTASSIUM 3.5 MEQ/L (3.5-5.1)
[2017-03-21 05:02] LABS: AUTOMATED NEUTROPHIL # 3.7 TH/MM3 (1.8-7.7); BASOPHIL % 0.1 % (0.0-2.0); EOSINOPHIL # 0.2 TH/MM3 (0-0.4); EOSINOPHIL % 2.8 % (0.0-4.0); HEMATOCRIT 24.7 % (35.0-46.0); HEMO FLAGS DIFF FINAL; LYMPH % 30.6 % (9.0-44.0); MEAN CELL VOLUME 87.8 FL (80.0-100.0); MEAN CORPUSCULAR HEMOGLOBIN 30.6 PG (27.0-34.0); MEAN CORPUSCULAR HGB CONC 34.9 % (32.0-36.0); MONO % 9.6 % (0.0-8.0); NEUT % 56.9 % (16.0-70.0); PLATELET COUNT 233 TH/MM3 (150-450); RED BLOOD COUNT 2.81 MIL/MM3 (4.00-5.30); RED CELL DISTRIBUTION WIDTH 13.4 % (11.6-17.2); WHITE BLOOD COUNT 6.5 TH/MM3 (4.0-11.0)
[2017-03-21] MEDS: oxyCODONE/ACETAMINOPHEN 10 MG/325 MG TAB PO PRN ×4 (05:23→20:33)
--- NOTE | 2017-03-21 05:40 | RADRPT ---
EXAM DATE/TIME: 03/21/2017 05:07 [facility] COMPARISON: CHEST SINGLE AP, March 20, 2017, 4:07. INDICATIONS : Hemothorax. MEDICAL HISTORY : Diabetes mellitus type II. SURGICAL HISTORY : Hysterectomy. ENCOUNTER: Subsequent ACUITY: 1 week PAIN SCORE: 6/10 LOCATION: Right chest FINDINGS: The cardiac silhouette is normal in transverse diameter. Right chest tube is in place. Small right ap ical pneumothorax is present. There are no signs of tension. There is subsegmental atelectasis in the left base. CONCLUSION: 1. Small right apical pneumothorax without tension Bret Bailey MD on March 21, 2017 at 5:38 Board Certified Radiologist. This report was verified electronically.
[2017-03-21] MEDS: INSULIN NovoLIN REGULAR SUPPLEMENTAL SCALE SQ SCH ×4 (08:00→20:25)
[2017-03-21] MEDS: SODIUM CHLORIDE 0.9% FLUSH 5 ML FLUSH IVF SCH ×2 (09:00→21:00)
[2017-03-21] MEDS ORDERED: REMOVE OLD PATCH-FENTANYL T-DERMAL SCH (09:00)
[2017-03-21] MEDS: RESP: ALBUTEROL 2.5 MG/IPRATROPIUM 0.5 MG NEB (SCH) NEB ×3 (09:36→20:02)
[2017-03-21] MEDS: GABAPENTIN 400 MG CAP PO SCH ×3 (09:54→17:24)
[2017-03-21] MEDS: QUEtiapine FUMARATE 100 MG TAB PO SCH ×2 (09:54→20:23)
[2017-03-21] MEDS: FAMOTIDINE 20 MG TAB PO SCH ×2 (09:54→20:24)
[2017-03-21] MEDS: MULTIVITAMINS/MINERALS THERAPEUTIC TAB PO SCH (09:54)
[2017-03-21] MEDS: DOCUSATE SODIUM 50 MG/SENNA 8.6 MG TAB PO SCH ×2 (09:54→20:24)
[2017-03-21] MEDS: DULoxetine HCl DR 60 MG CAP PO SCH ×2 (09:54→20:23)
[2017-03-21] MEDS: POLYETHYLENE GLYCOL 17 GM PKG PO SCH (09:55)
[2017-03-21] MEDS: LIDOCAINE HCL 5% PATCH T-DERMAL SCH (09:56)
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
[2017-03-21] MEDS ORDERED: oxyCODONE/ACETAMINOPHEN 5 MG/325 MG TAB PO PRN (12:15)
[2017-03-21] MEDS ORDERED: ACETAMINOPHEN 1000 MG/100 ML 100 ML IV PRN (12:15)
[2017-03-21] MEDS: ENOXAPARIN SODIUM 40 MG/0.4 ML SYRINGE SQ SCH (13:46)
[2017-03-22] VITALS (7 sets, daily range): BP systolic 108–144; BP diastolic 63–77; PULSE 84–94; RESP 16–21; TEMP 97.8–99.1; O2SAT 94–98
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
[2017-03-22] MEDS: INSULIN NovoLIN REGULAR SUPPLEMENTAL SCALE SQ SCH ×4 (07:29→20:05)
[2017-03-22] MEDS: DULoxetine HCl DR 60 MG CAP PO SCH ×2 (07:31→20:00)
[2017-03-22] MEDS: MULTIVITAMINS/MINERALS THERAPEUTIC TAB PO SCH (07:31)
[2017-03-22] MEDS: GABAPENTIN 400 MG CAP PO SCH ×3 (07:31→17:49)
[2017-03-22] MEDS: FAMOTIDINE 20 MG TAB PO SCH ×2 (07:32→19:59)
[2017-03-22] MEDS: DOCUSATE SODIUM 50 MG/SENNA 8.6 MG TAB PO SCH ×2 (07:32→19:59)
[2017-03-22] MEDS: QUEtiapine FUMARATE 100 MG TAB PO SCH ×2 (07:32→07:34)
[2017-03-22] MEDS: LIDOCAINE HCL 5% PATCH T-DERMAL SCH (07:33)
[2017-03-22] MEDS: POLYETHYLENE GLYCOL 17 GM PKG PO SCH (07:33)
[2017-03-22] MEDS: SODIUM CHLORIDE 0.9% FLUSH 5 ML FLUSH IVF SCH ×2 (07:33→21:00)
[2017-03-22] MEDS: RESP: ALBUTEROL 2.5 MG/IPRATROPIUM 0.5 MG NEB (SCH) NEB ×2 (08:45→13:44)
[2017-03-22] MEDS: oxyCODONE/ACETAMINOPHEN 10 MG/325 MG TAB PO PRN ×3 (09:03→20:00)
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
[2017-03-22] MEDS ORDERED: ZOLPIDEM TARTRATE 5 MG TAB PO PRN (12:30)
[2017-03-22] MEDS ORDERED: CITALOPRAM HYDROBROMIDE 20 MG TAB PO SCH (13:00)
[2017-03-22] MEDS: ENOXAPARIN SODIUM 40 MG/0.4 ML SYRINGE SQ SCH (14:44)
[2017-03-23 00:20] VITALS: BP 144/74; PULSE 88; RESP 17; TEMP 99; O2SAT 95
[2017-03-23] MEDS: oxyCODONE/ACETAMINOPHEN 10 MG/325 MG TAB PO PRN ×4 (01:13→13:46)
[2017-03-23 05:01] LABS: AUTOMATED NEUTROPHIL # 7.8 TH/MM3 (1.8-7.7); BASOPHIL # 0.1 TH/MM3 (0-0.2); BASOPHIL % 0.8 % (0.0-2.0); EOSINOPHIL # 0.2 TH/MM3 (0-0.4); HEMATOCRIT 29.5 % (35.0-46.0); LYMPH % 21.5 % (9.0-44.0); LYMPHOCYTE # 2.4 TH/MM3 (1.0-4.8); MEAN CORPUSCULAR HGB CONC 33.3 % (32.0-36.0); NEUT % 68.7 % (16.0-70.0); PLATELET COUNT 399 TH/MM3 (150-450); RED BLOOD COUNT 3.39 MIL/MM3 (4.00-5.30); RED CELL DISTRIBUTION WIDTH 13.9 % (11.6-17.2); WHITE BLOOD COUNT 11.4 TH/MM3 (4.0-11.0)
[2017-03-23 05:03] LABS: HEMO FLAGS AUTO DIFF
[2017-03-23 05:22] LABS: ALKALINE PHOSPHATASE 127 U/L (45-117); ALT (GPT) 28 U/L (10-53); ANION GAP 10 MEQ/L (5-15); AST (GOT) 27 U/L (15-37); BICARBONATE 25.2 MEQ/L (21.0-32.0); BLOOD UREA NITROGEN 8 MG/DL (7-18); CHLORIDE 103 MEQ/L (98-107); GLOMERULAR FILTRATION RATE 101 ML/MIN (>89); POTASSIUM 4.1 MEQ/L (3.5-5.1); SODIUM (NA) 138 MEQ/L (136-145); TOTAL BILIRUBIN ADULT 0.4 MG/DL (0.2-1.0)
--- NOTE | 2017-03-23 06:53 | RADRPT ---
EXAM DATE/TIME: 03/23/2017 05:15 [facility] COMPARISON: CHEST SINGLE AP, March 22, 2017, 4:38. INDICATIONS : Chest and rib pain on the right MEDICAL HISTORY : Diabetes mellitus type II. SURGICAL HISTORY : Hysterectomy. ENCOUNTER: Subsequent ACUITY: 1 week PAIN SCORE: 8/10 LOCATION: Right chest FINDINGS: A single view of the chest demonstrates the interval removal of the right-sided chest tube. There boggs s appear to be a small right apical pneumothorax. Stable scarring or atelectasis left lung base.. Th e cardiomediastinal contours are unremarkable. Osseous structures are intact. CONCLUSION: Removal of the right-sided chest tube. There does appear to be a small right apical pneumothorax. Sta ble scarring left lung base. Bobo Mata MD on March 23, 2017 at 6:51 Board Certified Radiologist. This report was verified electronically.
[2017-03-23 07:23] VITALS: O2SAT 94
[2017-03-23 07:23] LABS: BANDS 11 % (0-6); BASOPHILS 1 % (0-2); EOSINOPHILS 1 % (0-4); METAMYELOCYTES 1 % (0-1); NEUTROPHIL # MANUAL DIFF 8.7 TH/MM3 (1.8-7.7); POLYS (SEG NEUTROPHILS) 64 % (16-70); WBC DIFF SAMPLE 100
[2017-03-23 07:27] LABS: PLATELET ESTIMATE SMEAR NORMAL (NORMAL); PLATELET MORPHOLOGY NORMAL (NORMAL); SCAN/DIFF FINAL DIFF MANUAL; SPHEROCYTES OCC (NORMAL)
[2017-03-23 08:00] VITALS: BP 121/77; PULSE 77; RESP 17; TEMP 97.8; O2SAT 95
[2017-03-23] MEDS: INSULIN NovoLIN REGULAR SUPPLEMENTAL SCALE SQ SCH ×2 (08:00→12:00)
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
[2017-03-23] MEDS: SODIUM CHLORIDE 0.9% FLUSH 5 ML FLUSH IVF SCH (09:00)
[2017-03-23] MEDS: DOCUSATE SODIUM 50 MG/SENNA 8.6 MG TAB PO SCH (10:02)
[2017-03-23] MEDS: DULoxetine HCl DR 60 MG CAP PO SCH (10:03)
[2017-03-23] MEDS: MULTIVITAMINS/MINERALS THERAPEUTIC TAB PO SCH (10:03)
[2017-03-23] MEDS: GABAPENTIN 400 MG CAP PO SCH ×2 (10:03→13:45)
[2017-03-23] MEDS: FAMOTIDINE 20 MG TAB PO SCH (10:04)
[2017-03-23] MEDS: POLYETHYLENE GLYCOL 17 GM PKG PO SCH (10:04)
[2017-03-23] MEDS: LIDOCAINE HCL 5% PATCH T-DERMAL SCH (10:09)
[2017-03-23] MEDS ORDERED: NEUR400C PO (11:31)
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
[2017-03-23 12:00] VITALS: BP 114/69; PULSE 77; RESP 18; TEMP 97.1; O2SAT 96
--- NOTE | 2017-03-23 12:10 | PD.ORT.PN ---
Subjective Post Op Day #: 8 Subjective Remarks Patient resting comfortably in bed with mild pain to the left lower leg. Patient denies CP, SOB, fevers, or chills. Patient is concerned regarding localized swelling to the anterior aspect of her lower leg. Objective Vitals Vital Signs Date Time Temp Pulse Resp B/P (MAP) Pulse Ox O2 Delivery O2 Flow Rate FiO2 03/23/17 08:00 97.8 77 17 121/77 (92) 95 03/23/17 07:23 94 21 03/23/17 00:20 99.0 88 17 144/74 (97) 95 03/22/17 21:31 97 Room Air 03/22/17 20:46 99.1 94 17 134/77 (96) 97 03/22/17 18:35 94 03/22/17 16:00 97.8 88 18 109/63 (78) 94 03/22/17 14:44 16 I/O 03/22/17 03/22/17 03/22/17 03/23/17 03/23/17 03/23/17 07:00 15:00 23:00 07:00 15:00 23:00 Intake Total 240 ml 360 ml 120 ml Output Total 50 ml Balance 190 ml 360 ml 120 ml Intake Oral 240 ml 360 ml 120 ml Chest Tube Drainage Total 50 ml # Voids 2 3 3 2 # Bowel Movements 0 2 0 0 Result Diagram: 03/23/17 0455 03/23/17 0455 Imaging Last 24 hours Impressions Chest X-Ray 03/16/17 0600 Signed Impressions: Service Date/Time: Thursday, March 16, 2017 03:03 - CONCLUSION: 1. Improving left basilar atelectasis 2. There is no evidence of pneumothorax. Bret Bailey MD Procedures Left tibia fracture treatment with intramedullary nail Right fibula head fracture Objective Remarks Left lower extremity dressings are C/D/I. EHL/TA/G intact. 2+ pedal pulse. + SILT. Calf is soft and nontender. moves toes. Small area of fluctuance and bruising to the anterior/proximal tibia. Right lower extremity EHL/TA/G intact. 2+ pedal pulse. Skin intact. Calf is soft and nontender. + SILT. Assessment & Plan Ortho Post Op Day #: 8 Problem List: Assessment and Plan POD #8: Left tibia fracture treatment with intramedullary nail, Left lower extremity hematoma around previous fracture site. Right fibula head fracture 1. TTWB LLE, WBAT RLE 2. Lovenox for DVT prophylaxis x 3 weeks 3. Ice to the bilateral Lower legs PRN 4. Plan is for discharge to SNF vs Rehab once medically cleared. Stable per ortho. 5. XRs ordered for the left tib/fib for reevaluation. Patient has what appears to be a small hematoma over the anterior/proximal tibia around the initial fracture site. There has likely been some bleeding from the fracture into the soft tissues. This should resolve on its own given time. Ice will help with swelling. I have a low suspicion for infection or abscess. Skin color is more consistent with ecchymosis rather than erythema. 6. cleared for d/c per ortho 7. F/U in the office with Dr. Loazno or JOSE Diaz Daniel Scott ARNP Mar 23, 2017 12:10
[2017-03-23] MEDS ORDERED: CITALOPRAM HYDROBROMIDE 20 MG TAB PO SCH (13:30)
--- NOTE | 2017-03-23 13:36 | RADRPT ---
EXAM DATE/TIME: 03/23/2017 13:00 [facility] COMPARISON: CHEST SINGLE AP, March 23, 2017, 5:15. INDICATIONS : Post op, swelling in left tibia MEDICAL HISTORY : left tibia fracture. SURGICAL HISTORY : left tibia surgery ENCOUNTER: Initial ACUITY: 1 week PAIN SCORE: 7/10 LOCATION: Left tibia FINDINGS: The exam demonstrates an intramedullary katherine across a patient's tibial fracture. The katherine is in excelle nt position. Note is made of a comminuted fracture involving the proximal fibula as well. CONCLUSION: 1. Orthopedic hardware in excellent position. There is no evidence of complication. 2. Fractures of the tibia and fibula as above. Richar Ga MD on March 23, 2017 at 13:33 Board Certified Radiologist. This report was verified electronically.
[2017-03-23] MEDS: ENOXAPARIN SODIUM 40 MG/0.4 ML SYRINGE SQ SCH (13:47)
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
[2017-03-23] MEDS ORDERED: CLON.5 PO (14:05)
[2017-03-23] MEDS ORDERED: CELE20TA PO (14:05)
[2017-03-23] MEDS ORDERED: clonazePAM 0.5 MG TAB PO SCH (21:00)
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
== END 2017-03-23 14:00 | DRG 493 ==
LOC: NEPI 22:38 → EDBD 23:41 → N03A 23:41 → N06B 03-17 18:43 → N03B 03-19 13:23 → N06A 03-20 13:41
PROVIDERS: ADMIT Surgery Trauma Surgery; ATTEND Surgery Trauma Surgery
PROC: 0T9B70Z Drainage of Bladder with Drainage Device, Via Natural or Artificial Opening (ICD-10-PCS; 2017-03-14)
PROC: 0QSH36Z Reposition Left Tibia with Intramedullary Internal Fixation Device, Percutaneous Approach (ICD-10-PCS; 2017-03-15)
PROC: 0HQ1XZZ Repair Face Skin, External Approach (ICD-10-PCS; principal; 2017-03-15 13:17)
PROC: 0W9930Z Drainage of Right Pleural Cavity with Drainage Device, Percutaneous Approach (ICD-10-PCS; 2017-03-19)
DX: S82.222A Displaced transverse fracture of shaft of left tibia, initial encounter for closed fracture (principal); S22.41XA Multiple fractures of ribs, right side, initial encounter for closed fracture; S27.0XXA Traumatic pneumothorax, initial encounter; S22.058A Other fracture of T5-T6 vertebra, initial encounter for closed fracture; E27.8 Other specified disorders of adrenal gland; T79.7XXA Traumatic subcutaneous emphysema, initial encounter; S27.321A Contusion of lung, unilateral, initial encounter; S22.068A Other fracture of T7-T8 thoracic vertebra, initial encounter for closed fracture; S22.078A Other fracture of T9-T10 vertebra, initial encounter for closed fracture; S06.0X1A Concussion with loss of consciousness of 30 minutes or less, initial encounter; S82.402A Unspecified fracture of shaft of left fibula, initial encounter for closed fracture; S82.831A Other fracture of upper and lower end of right fibula, initial encounter for closed fracture; S01.20XA Unspecified open wound of nose, initial encounter; S80.01XA Contusion of right knee, initial encounter; S01.21XA Laceration without foreign body of nose, initial encounter; S01.81XA Laceration without foreign body of other part of head, initial encounter; S50.312A Abrasion of left elbow, initial encounter; V03.10XA Pedestrian on foot injured in collision with car, pick-up truck or van in traffic accident, initial encounter; Y93.89 Activity, other specified; Y92.410 Unspecified street and highway as the place of occurrence of the external cause; Z79.891 Long term (current) use of opiate analgesic; F43.10 Post-traumatic stress disorder, unspecified; F31.9 Bipolar disorder, unspecified; F60.3 Borderline personality disorder; E11.9 Type 2 diabetes mellitus without complications; J45.909 Unspecified asthma, uncomplicated
CPT/HCPCS: 36600; 70450; 71010; 71260; 71275; 72125; 72128; 72131; 72170; 73070; 73564; 73590; 74177; 76000; 80048; 80053; 80307; 82435; 82565; 82805; 82947; 82948; 83735; 84100; 84132; 84155; 84295; 84520; 84702; 85007; 85025; 85027; 85610; 85730; 86850; 86900; 86901; 87641; 94150; 94640; 94664; 94667; 94668; J1170; C1713; J0131; J0690; J1100; J1580; J1650; J2060; J2250; J2270; J2370; J2405; J3010; J3370; J7030; J7613; Q9967